=== PATIENT | female | born 1990 | race African-American/Black ===

== ENCOUNTER 2017-10-07 15:38 | Outpatient (CLI) | payer OTHER ==
--- NOTE | 2017-10-07 17:21 | ULT ---
EXAM: TRANSABDOMINAL PELVIC ULTRASOUND 10/07/17 HISTORY: Evaluate for viability. Patient's doctor's office could not obtain heartbeat. Exam is requested for confirmation. COMPARISON: None. TECHNIQUE: Transabdominal imaging of the pelvis is performed. FINDINGS: The uterus is identified measuring 9.8 x 5.8 x 7.1 cm. There is a gestational sac within the endometrium. A definite yolk sac and a normal appearing p ole are not seen. A questionable pole measures 0.8 cm with a gestational age of 6 weeks, 5 days . Gestational age by gestational sac diameter is 9 weeks, 2 days. heart tones in this presumed or suspected pole are not appreciated. Left ovary has a normal echotexture, measuring 3.1 x 2.0 x 1.9 cm. Right ovary has a normal echotextu re measuring 2.2 x 1.5 x 3.3 cm. A small complex follicle measuring 0.9 cm is noted. No free fluid. IMPRESSION: Questionable pole within the gestational sac. There is a discrepancy between the gestational ag e by crown-rump length and mean sac diameter. Definite heart tones are not appreciated. Clinica l correlation with laboratory values is recommended. Serial ultrasounds and beta HCGs can be performe d. POS: [facility]
== END 2017-10-07 15:39 | disposition home or self-care (01) ==
LOC: ULT 15:38
PROVIDERS: ATTEND Nurse Practitioner
DX: Z34.81 Encounter for supervision of other normal pregnancy, first trimester (principal); Z3A.09 9 weeks gestation of pregnancy
CPT/HCPCS: 76856

== ENCOUNTER 2018-01-13 14:22 | Emergency (ER) | payer OTHER ==
[2018-01-13] MEDS ORDERED: HYDROcodone/Acetaminophen 5/325 mg Tablet ONE (14:42)
== END 2018-01-13 15:00 | disposition home or self-care (01) ==
LOC: ERS 14:22
DX: O03.9 Complete or unspecified spontaneous abortion without complication (principal); J45.909 Unspecified asthma, uncomplicated; F17.210 Nicotine dependence, cigarettes, uncomplicated
CPT/HCPCS: 99283

== ENCOUNTER 2018-11-10 09:16 | Outpatient (CLI) | payer OTHER ==
--- NOTE | 2018-11-10 10:26 | ULT ---
US OB Complete STANDARD History: [Anatomy scan] Comparison: Ultrasound pelvis October 07, 2017 Findings: Real-time grayscale, color, and spectral analysis of the gravid uterus was performed. There is a single viable intrauterine with average ultrasound age 25 week 3 day with estima ching date of delivery August 23, 2018. Estimated weight is 1 lb. 11 oz., 66 percentile. Biometry: Biparietal diameter 6.52 cm, 26 week 3 day Head circumference: 22.77 cm, 24 weeks 6 day Abdominal circumference: 19.86 cm, 24 week 4 day Femur length: 4.64 cm, 25 week 3 days Heart rate documented at 1 43 bpm. Adequate amniotic fluid. No placenta previa. The placenta is anter ior and the presentation is vertex. Cervix measures 4.1 cm in length and is closed. Anatomy: There is abnormal dilatation of the bilateral renal pelvis by. These were not measured by e technologist. Both renal pelvis by appear to measure approximately 5 mm. The head, cerebellum, cisterna magna, late ral ventricles, four-chamber heart, stomach, cord insertion, bladder, spine, upper extremities, lower extremities, three-vessel cord are all normal. The lips/nose are not seen. Impression: 1. Single viable intrauterine with average ultrasound age 25 week 3 day with estimated date of delivery February 20, 2019. 2. Abnormal dilatation of bilateral renal pelvis by a 5 mm. Close attention on follow-up imaging is r ecommended.
== END 2018-11-10 09:17 | disposition home or self-care (01) ==
LOC: BICULT 09:16
PROVIDERS: ATTEND Family Medicine
DX: O09.892 Supervision of other high risk pregnancies, second trimester (principal); Z3A.25 25 weeks gestation of pregnancy
CPT/HCPCS: 76805

== ENCOUNTER 2019-02-21 10:09 | Inpatient (IN) | payer OTHER ==
[2019-02-21 10:50] VITALS: BMI 37.5
[2019-02-21] MEDS ORDERED: Bicitra 30 ML UDCUP ONE (11:17)
[2019-02-21] MEDS ORDERED: Butorphanol Tartrate 1 MG/ML VIAL SLOW IVP PRN (11:18)
[2019-02-21] MEDS ORDERED: hydrALAZINE 20 MG/ML VIAL SLOW IVP PRN ×3 (11:18→17:29)
[2019-02-21] MEDS ORDERED: Bicitra 30 ML UDCUP PO SCH (11:18)
[2019-02-21] MEDS ORDERED: Promethazine HCl 25 MG/ML VIAL IM PRN ×2 (11:18→11:57)
[2019-02-21] MEDS ORDERED: Ondansetron PF 4 MG/2 ML Vial IVP PRN ×3 (11:18→17:29)
[2019-02-21] MEDS ORDERED: Lactated Ringer's 1,000 ML IV SCH (11:18)
[2019-02-21] MEDS ORDERED: CEFAZOLIN 2 GM in Sodium Chloride 0.9% 100 ML IVPB SCH (11:30)
[2019-02-21 11:33] LABS: Hemoglobin 11.4 g/dL (12.0-16.0); Mean Corpuscular Hemoglobin 29.6 pg (27.0-31.0); Mean Corpuscular Volume 87.1 fL (78.0-98.0); Mean Platelet Volume 7.9 fL (7.4-10.4); Platelet Count 246 thou/uL (130-400); RBC Distribution Width 11.9 % (11.5-14.5); Red Blood Cell (RBC) Count 3.86 mill/uL (4.20-5.40); White Blood Cell (WBC) Count 7.9 thou/uL (4.8-10.8)
[2019-02-21] MEDS ORDERED: diphenhydrAMINE 50 MG/ML VIAL ONE (11:36)
[2019-02-21] MEDS ORDERED: Naloxone HCl 0.4 mg/ml Vial IVP PRN ×2 (11:57→12:00)
[2019-02-21] MEDS ORDERED: Meperidine HCl/PF 25 MG/ML VIAL SLOW IVP PRN (11:57)
[2019-02-21] MEDS ORDERED: diphenhydrAMINE 50 MG/ML VIAL IVP PRN (11:57)
[2019-02-21] MEDS ORDERED: HYDROmorphone 2 MG/ML VIAL SLOW IVP PRN (11:57)
[2019-02-21] MEDS ORDERED: L&D-Morphine 4 MG/ML VIAL SLOW IVP PRN (11:57)
[2019-02-21] MEDS ORDERED: Ketorolac Tromethamine 30 MG/ML VIAL IVP PRN (11:57)
[2019-02-21] MEDS ORDERED: Promethazine HCl 25 MG SUPP PR PRN (11:57)
[2019-02-21] MEDS ORDERED: Naloxone HCl 0.4 mg/ml Vial IV PRN (11:57)
[2019-02-21] MEDS ORDERED: Ondansetron HCl/PF 4 MG/2 ML Vial IVP PRN (11:57)
[2019-02-21] MEDS ORDERED: Ketorolac Tromethamine 30 MG/ML VIAL IVP SCH (12:00)
[2019-02-21] MEDS ORDERED: MORPHINE 5 MG/10 ML PF VIAL ONE (12:00)
[2019-02-21] MEDS ORDERED: Communication Order-Pharmacy FS SCH (12:00)
[2019-02-21] MEDS ORDERED: Ondansetron PF 4 MG/2 ML Vial ONE (12:00)
[2019-02-21] MEDS ORDERED: Oxytocin 10 UNITS/ML VIAL ONE (12:00)
[2019-02-21] MEDS ORDERED: diphenhydrAMINE 50 MG/ML VIAL IVP SCH (12:00)
[2019-02-21 12:21] LABS: HBSAg Index 0.26 S/CO (0-0.99); Hep B Surf Ag Non-Reactive S/CO (NonReactive); Syphilis Antibody Nonreactive (Nonreactive); Syphilis Antibody Index 0.03 S/CO (<1.00 Non-Reactive)
[2019-02-21] MEDS ORDERED: Meperidine HCl/PF 25 MG/ML VIAL ONE (15:07)
[2019-02-21] MEDS ORDERED: hydrALAZINE 20 MG/ML VIAL ONE (15:52)
[2019-02-21] MEDS ORDERED: hydrALAZINE 20 MG/ML VIAL SLOW IVP SCH (16:15)
[2019-02-21] MEDS ORDERED: Bisacodyl 10 MG SUPP PR PRN (17:29)
[2019-02-21] MEDS ORDERED: Lanolin Ointment 7 GM TUBE TOP PRN (17:29)
[2019-02-21] MEDS ORDERED: Zolpidem Tartrate 5 MG TAB PO PRN (17:29)
[2019-02-21] MEDS ORDERED: NS / Oxytocin 40 units/1000ml 1,000 ML IV SCH (18:00)
[2019-02-21] MEDS ORDERED: Ibuprofen 800 MG TAB PO SCH (18:00)
[2019-02-21] MEDS ORDERED: Ferrous Sulfate 325 MG TAB PO SCH (18:00)
[2019-02-21] MEDS: Ketorolac Tromethamine 30 MG/ML VIAL IVP SCH (19:56)
[2019-02-21] MEDS: Docusate Calcium (SURFAK) 240 MG CAP PO SCH (22:22)
[2019-02-22] MEDS ORDERED: Butorphanol Tartrate 1 MG/ML VIAL SLOW IVP PRN
[2019-02-22] MEDS ORDERED: Meperidine HCl/PF 25 MG/ML VIAL IM PRN (00:01)
[2019-02-22] MEDS: Ketorolac Tromethamine 30 MG/ML VIAL IVP SCH ×2 (02:04→08:24)
[2019-02-22 05:40] LABS: Hemoglobin 11.4 g/dL (12.0-16.0); Mean Corpuscular HGB CONC 33.6 g/dL (32.0-36.0); Mean Corpuscular Hemoglobin 29.5 pg (27.0-31.0); Mean Corpuscular Volume 87.8 fL (78.0-98.0); Mean Platelet Volume 7.7 fL (7.4-10.4); Platelet Count 253 thou/uL (130-400); Red Blood Cell (RBC) Count 3.87 mill/uL (4.20-5.40); White Blood Cell (WBC) Count 11.6 thou/uL (4.8-10.8)
[2019-02-22] MEDS ORDERED: Ibuprofen 800 MG TAB PO SCH (06:00)
--- NOTE | 2019-02-22 07:52 | DN ---
DATE OF PROCEDURE: 02/21/2019 RESIDENT: Devin Irving, PGY-3. PROCEDURE PERFORMED: Primary low-transverse section. PREOPERATIVE DIAGNOSES: 1. Term intrauterine . 2. Breech presentation. POSTOPERATIVE DIAGNOSIS: 1. Term intrauterine . 2. Breech presentation. ANESTHESIA: Spinal. INDICATIONS: The patient is a 28-year-old, G2, P1-0-0-1 at 39 and 2 weeks gestation, who presents for a scheduled due to breech presentation. PROCEDURE IN DETAIL: After risks, benefits, and alternatives were explained to the patient, she gave informed consent. Preoperative antibiotics include cefazolin 2 g IV. The patient was taken to the operating room and spinal anesthesia was initiated. She was placed in the supine position with left tilt and prepped and draped in the usual sterile fashion. A Pfannenstiel incision was made with a scalpel and carried down to the level of fascia, which was sharply nicked. Fascial cut was extended bilaterally with [place] scissors. The inferior and superior edges of the cut fascial edges were elevated with Denise clamps and underlying rectus muscles were sharply and bluntly dissected free. The recti were divided digitally and retracted manually. The peritoneum was entered bluntly and retracted manually. An Jakob O retractor was placed. A low transverse score was made with the scalpel, and the uterus was entered in the midline with scalpel, clear fluid was seen. The hysterotomy was extended manually. The infant was noted to be footling breech presentation and was easily delivered. Mouth and nares were bulb suctioned. Cord clamped and cut and grossly normal male infant, was handed to waiting nurse. Cord blood was obtained. Placenta was manually extracted, found to be intact with three vessel cord and discarded. Uterus was externalized, and the endometrium was curetted with a dry lap. The uterus was then closed with a running locking 0-Vicryl suture then we placed few [id number] 0-Vicryl sutures as well. Following this, hemostasis was noted. Jakob O retractor was then removed. The abdomen was irrigated with saline and suctioned free of clots. The uterus was internalized, and the hysterotomy was again noted to be hemostatic. The peritoneum was closed with a 3-0 Vicryl running nonlocking suture. The fascia was then closed with a running nonlocking one PDS suture. The subcu tissue was irrigated, and there were no bleeders. The skin was approximated with marciano and a pressure dressing was placed. All counts were correct. The patient tolerated the procedure well and was taken to the recovery room in stable condition. EBL was 400 mL. COMPLICATIONS: None. SPECIMENS: Cord blood sent to lab for blood type. FINDINGS: Grossly normal male with Apgars of eight and eight. Grossly normal placenta with 3-vessel cord discarded. DRAINS: Cardoso to gravity, draining clear urine. Job ID: [id number]
[2019-02-22] MEDS ORDERED: Sodium Chloride 0.9% 20 ML ONE (08:18)
[2019-02-22] MEDS ORDERED: Adacel (T-DAP) 0.5 ML SYRINGE IM ONE (09:00)
[2019-02-22] MEDS: Ferrous Sulfate 325 MG TAB PO SCH ×3 (09:05→18:11)
[2019-02-22] MEDS: Docusate Calcium (SURFAK) 240 MG CAP PO SCH ×2 (09:08→21:03)
[2019-02-22] MEDS: Prenatal Vitamin 1 TAB PO SCH (09:08)
[2019-02-22] MEDS: HYDROcodone/Acetaminophen 5/325 mg Tablet PO PRN ×2 (14:51→21:04)
[2019-02-22] MEDS: Simethicone Chewable 80 MG TAB PO PRN ×2 (14:52→21:03)
[2019-02-22] MEDS: Ibuprofen 800 MG TAB PO SCH ×2 (16:57→23:14)
[2019-02-22] MEDS: diphenhydrAMINE 25 MG CAP PO PRN (23:25)
[2019-02-23] MEDS: Ibuprofen 800 MG TAB PO SCH ×3 (02:01→20:35)
[2019-02-23] MEDS: Docusate Calcium (SURFAK) 240 MG CAP PO SCH ×2 (08:51→20:35)
[2019-02-23] MEDS: Prenatal Vitamin 1 TAB PO SCH (08:51)
[2019-02-23] MEDS: Ferrous Sulfate 325 MG TAB PO SCH ×2 (09:16→16:51)
[2019-02-23] MEDS: Simethicone Chewable 80 MG TAB PO PRN ×3 (10:48→20:35)
[2019-02-23] MEDS: HYDROcodone/Acetaminophen 5/325 mg Tablet PO PRN ×3 (10:57→20:36)
[2019-02-23] MEDS: cloNIDine 0.1 MG TAB PO PRN (17:17)
[2019-02-23] MEDS: diphenhydrAMINE 25 MG CAP PO PRN (22:04)
[2019-02-24] MEDS: cloNIDine 0.1 MG TAB PO PRN ×2 (00:46→17:25)
[2019-02-24] MEDS: HYDROcodone/Acetaminophen 5/325 mg Tablet PO PRN ×3 (00:47→13:21)
[2019-02-24] MEDS: Simethicone Chewable 80 MG TAB PO PRN ×2 (03:44→13:21)
[2019-02-24] MEDS: Ibuprofen 800 MG TAB PO SCH ×2 (06:05→13:21)
[2019-02-24] MEDS: Docusate Calcium (SURFAK) 240 MG CAP PO SCH (08:21)
[2019-02-24] MEDS: Prenatal Vitamin 1 TAB PO SCH (08:21)
[2019-02-24] MEDS: Ferrous Sulfate 325 MG TAB PO SCH ×2 (08:24→16:12)
[2019-02-24] MEDS ORDERED: Losartan/Hydrochlorothiazide 100 mg/25 mg Tablet PO SCH (09:00)
[2019-02-24 11:52] VITALS: TEMP 97.8
[2019-02-24 17:26] VITALS: BP 155/88
== END 2019-02-24 18:30 | disposition home or self-care (01) | DRG 788 ==
LOC: L&D 10:09 → 3SW 18:10
PROVIDERS: ADMIT Family Medicine; ATTEND Family Medicine
PROC: 10D00Z1 Extraction of Products of Conception, Low, Open Approach (ICD-10-PCS; principal; 2019-02-21)
DX: O32.1XX0 Maternal care for breech presentation, not applicable or unspecified (principal); Z3A.39 39 weeks gestation of pregnancy; Z37.0 Single live birth
CPT/HCPCS: 36415; 51702; 85027; 86780; 86850; 86900; 86901; 87340; 90471; 90732; G0009; J0360; J0690; J1200; J1885; J2175; J2274; J2310; J2405; J2590; J3490; Q0163

== ENCOUNTER 2020-05-16 04:10 | Inpatient (IN) | payer OTHER ==
[2020-05-16] MEDS ORDERED: Ondansetron PF 4 MG/2 ML Vial IVP PRN ×3 (04:40→08:02)
[2020-05-16] MEDS ORDERED: Promethazine HCl 25 MG/ML VIAL IM PRN ×3 (04:40→08:02)
[2020-05-16] MEDS ORDERED: hydrALAZINE 20 MG/ML VIAL SLOW IVP PRN ×3 (04:40→07:56)
[2020-05-16] MEDS ORDERED: Lactated Ringer's 1,000 ML IV SCH (04:45)
[2020-05-16] MEDS ORDERED: Labetalol HCl 100 MG/20 ML VIAL SLOW IVP SCH (05:00)
[2020-05-16 05:14] VITALS: BMI 34.2
[2020-05-16 06:06] LABS: Hemoglobin 11.3 g/dL (12.0-16.0); Mean Corpuscular HGB CONC 33.5 g/dL (32.0-36.0); Mean Corpuscular Hemoglobin 28.6 pg (27.0-31.0); Mean Corpuscular Volume 85.4 fL (78.0-98.0); Mean Platelet Volume 8.1 fL (7.4-10.4); Platelet Count 272 thou/uL (130-400); RBC Distribution Width 12.9 % (11.5-14.5); Red Blood Cell (RBC) Count 3.95 mill/uL (4.20-5.40)
[2020-05-16] MEDS ORDERED: PHENYLEPHRINE-NS 100 MCG/ML 10 ML SYRINGE ONE (06:23)
[2020-05-16] MEDS ORDERED: Oxytocin 10 UNITS/ML VIAL ONE ×2 (06:23→07:12)
[2020-05-16] MEDS ORDERED: Morphine PF 10 MG/10 ML VIAL ONE (06:23)
[2020-05-16 06:28] LABS: ALT (SGPT) 9 U/L (8-55); AST (SGOT) 16 U/L (5-34); Albumin 3.2 g/dL (3.5-5.0); Alkaline Phosphatase 132 U/L (40-110); Anion Gap 12 mmol/L (10-20); BUN (Urea Nitrogen) Less than 4 mg/dL (7.0-18.7); Bilirubin, Total 0.4 mg/dL (0.2-1.2); Calc. Creatinine Clearance 158 mL/min (70-130); Calcium 8.9 mg/dL (7.8-10.44); Carbon Dioxide 23 mmol/L (22-29); Chloride 101 mmol/L (98-107); Estimated GFR-MDRD Greater than 90; Globulin 3.1 g/dL (2.4-3.5); Glucose 78 mg/dL (70-105); Potassium 3.2 mmol/L (3.5-5.1); Protein, Total 6.3 g/dL (6.0-8.3); Sodium 133 mmol/L (136-145)
[2020-05-16] MEDS ORDERED: Clindamycin/D5W 900 MG in Premix Bag 1 BAG IVPB SCH (06:30)
[2020-05-16] MEDS ORDERED: Bicitra 30 ML UDCUP PO SCH (06:30)
[2020-05-16] MEDS ORDERED: Azithromycin 500 MG in Sodium Chloride 0.9% 250 ML 250 ML IVPB SCH (06:30)
[2020-05-16 06:45] LABS: Syphilis Antibody Nonreactive (Nonreactive); Syphilis Antibody Index 0.03 S/CO (<1.00 Non-Reactive)
[2020-05-16 06:46] LABS: HBSAg Index 0.16 S/CO (0-0.99); Hep B Surf Ag Non-Reactive S/CO (NonReactive)
--- NOTE | 2020-05-16 07:00 | HP ---
CHIEF COMPLAINT: Ruptured membranes. HISTORY OF PRESENT ILLNESS: Ms. Horn is a 29-year-old, G3, P2-0-0-2 with a reported estimated date of confinement of 05/26/2020, who presents complaining of ruptured membranes at 3 a.m. She states the fluid was clear. She has had intermittent contractions since that time. She states she has only had 4 visits since her began. She has seen several people in town including Dr. Thomas at [facility], and she has even been to [facility]. I have no records available for my review at the present time. PAST OBSTETRICAL HISTORY: Includes 1 vaginal delivery and 1 section for breech by Dr. Thomas. PAST MEDICAL HISTORY: None. PAST SURGICAL HISTORY: . CURRENT MEDICATIONS: vitamins. ALLERGIES: NO KNOWN ALLERGIES. SOCIAL HISTORY: Denies tobacco, alcohol, or drug use. FAMILY HISTORY: Unremarkable. REVIEW OF SYSTEMS: Denies nausea, vomiting, fever, chills, vaginal bleeding. PHYSICAL EXAMINATION: VITAL SIGNS: Initial blood pressure is 170 systolic, followup blood pressures after that are in the 150s systolic. GENERAL: She is anxious, but in no acute distress. CHEST: Clear to auscultation. CARDIOVASCULAR: Regular rate and rhythm. ABDOMEN: Soft and nontender. PELVIC: Shows the cervix to be 1 cm dilated. She is obviously grossly ruptured. heart rate tracing is in the 120s with decreased [id number] variability, however, no decelerations are seen. Only an occasional contraction is noted. Ultrasound shows a single fetus in the cephalic presentation. Estimated weight is approximately 3100 g and her EFRAÍN is noted to be 7. ASSESSMENT: 1. Suspected term intrauterine . 2. Poor care. 3. Previous section. 4. Obvious ruptured membranes. PLAN: Labs and COVID testing have been obtained. After these return, we will proceed to the OR for repeat section. The risks of the procedure including anesthesia, bleeding, infection, as well as damage to adjacent organs requiring repair, removal or transfusion was discussed with her in detail and she wishes to proceed. Job ID: [id number]
[2020-05-16] MEDS ORDERED: Ondansetron PF 4 MG/2 ML Vial ONE (07:01)
[2020-05-16] MEDS ORDERED: Dexamethasone 4 mg/ml Vial ONE (07:02)
[2020-05-16] MEDS ORDERED: ePHEDrine 50 MG/ML VIAL ONE (07:24)
[2020-05-16] MEDS ORDERED: Adacel (T-DAP) 0.5 ML SYRINGE IM ONE (07:56)
[2020-05-16] MEDS ORDERED: Measles/Mumps/Rubella 10 MCG/0.5 ML VIAL SC ONE (07:56)
[2020-05-16] MEDS ORDERED: diphenhydrAMINE 25 MG CAP PO PRN (07:56)
[2020-05-16] MEDS ORDERED: Lanolin Ointment 7 GM TUBE TOP PRN (07:56)
[2020-05-16] MEDS ORDERED: diphenhydrAMINE 50 MG/ML VIAL IVP PRN (08:02)
[2020-05-16] MEDS ORDERED: Promethazine HCl 25 MG SUPP PR PRN (08:02)
[2020-05-16] MEDS ORDERED: Naloxone HCl 0.4 mg/ml Vial IVP PRN ×2 (08:02)
[2020-05-16] MEDS ORDERED: Naloxone HCl 0.4 mg/ml Vial IV PRN (08:02)
[2020-05-16] MEDS ORDERED: Communication Order-Pharmacy FS SCH (08:15)
--- NOTE | 2020-05-16 08:38 | ULT ---
OB ULTRASOUND: COMPARISON: None. HISTORY: female. Abdominal pain. Evaluate size and dates. TECHNIQUE: Multiplanar, easton scale, and color Doppler images were obtained in a transabdominal ultrasound. FINDINGS: There is a single live intrauterine with heart rate of 111 b.p.m. Estimated weight i s 3,130 gm. The average age of the fetus based off today's examination is 36 weeks 5 days. The foll owing measurements were taken and dates based off these measurements as follows: BPD 8.96 cm, 36 weeks 2 days HC 32.45 cm, 36 weeks 5 days AC 34.05 cm, 38 weeks 0 days FL 7.01 cm, 36 weeks 0 days The fetus is in vertex presentation. EFRAÍN is 7.8 cm, which is normal. The placenta is anterior in lo cation without evidence of placenta previa. Cervix was not visualized. IMPRESSION: Single live intrauterine with estimated age of 36 weeks 5 days. POS: [facility]
[2020-05-16] MEDS ORDERED: Ketorolac Tromethamine 30 MG/ML VIAL ONE (08:45)
[2020-05-16] MEDS: Ketorolac Tromethamine 30 MG/ML VIAL IVP PRN ×2 (08:45→21:41)
--- NOTE | 2020-05-16 08:50 | OP ---
DATE OF PROCEDURE: 05/16/2020 PREOPERATIVE DIAGNOSES: 1. Suspected term intrauterine with poor care. 2. Ruptured membranes. 3. Previous section. POSTOPERATIVE DIAGNOSES: 1. Suspected term intrauterine with poor care. 2. Ruptured membranes. 3. Previous section. PROCEDURE PERFORMED: Repeat low-segment transverse section via Pfannenstiel incision. PRODUCTION SCHEDULER SURGEON: Luciano Villegas MD ANESTHESIA: Spinal. ESTIMATED BLOOD LOSS: 600 mL, QBL pending. FINDINGS: 1. Male , Apgars 8 and 9. Weight is 6#5oz, 2860gms, found in the cephalic presentation. 2. Normal uterus, tubes, and ovaries bilaterally. PROPHYLAXIS: Clindamycin 900 mg and azithromycin 500 mg prior to skin incision. COMPLICATIONS: None. TECHNIQUE IN DETAIL: After good spinal anesthesia was achieved, the patient was prepped and draped in usual sterile fashion in the supine position with leftward tilt. A transverse incision was made through a pre-existing surgical scar, and the abdomen was entered in layers. The uterus was identified, and a bladder flap was created in the peritoneum. A transverse incision was made across the lower uterine segment and was extended bluntly. The fetus was delivered from the cephalic presentation without difficulty. Clear fluid was seen. The cord was clamped and cut, and the baby was handed to the awaiting pediatric team. Cord blood was obtained. The placenta was manually removed. The inside of the uterus was curetted with a dry lap to remove all remaining placental fragments. Closure of the uterine incision was accomplished using Monocryl in a running locking fashion. Good hemostasis was noted with single-layer closure. The uterus was replaced in the abdominal cavity, and the pelvic gutters were cleared of all clots and debris. The perineum was reapproximated using a running locking plain gut suture. The fascia was then closed using a PDS suture brought from the patient's left side to her right side. The subcutaneous tissue was thoroughly irrigated and made dry using Bovie coagulation technique. The subcutaneous tissue was reapproximated using 2-0 plain suture in a running fashion. The skin was closed using a 3-0 Monocryl in a subcuticular stitch. Skin glue was then applied. Good hemostasis was noted through all layers of closure. Sponge, lap, and needle counts were correct. The patient tolerated the procedure well and was taken to the recovery room in good condition. Job ID: [id number] [facility]
[2020-05-16] MEDS ORDERED: FLU VACC QS2020-21(6MOS UP)/PF 60 MCG/0.5 ML SYRINGE IM ONE (09:00)
[2020-05-16] MEDS ORDERED: Calcium Gluconate 4.6 MEQ in Sodium Chloride 0.9% 100 ML IVPB SCH (09:27)
[2020-05-16] MEDS ORDERED: Labetalol HCl 100 MG/20 ML VIAL ONE (09:27)
[2020-05-16] MEDS ORDERED: Magnesium Sulfate 20 GM/WATER 500 ML BAG IVPB SCH (09:30)
[2020-05-16 09:41] LABS: Amphetamine Not Detected (NotDetected); Barbiturates Screen Not Detected (NotDetected); Benzodiazepine Screen Not Detected (NotDetected); Cocaine Metabolite Screen Detected (NotDetected); Medtox Control Line Valid? VALID (VALID); Medtox Reader # READER 4; Methadone Not Detected (NotDetected); Methamphetamine Not Detected (NotDetected); Opiate Screen Not Detected (NotDetected); Oxycodone Screen Not Detected (NotDetected); Phencyclidine (PCP) Not Detected (NotDetected); THC/Cannabinoid Screen Not Detected (NotDetected); Tricyclic Screen Not Detected (NotDetected)
[2020-05-16] MEDS: Magnesium Sulfate 20 gm/500 ml 20 GM/500 ML BAG IVPB SCH ×2 (10:06→18:07)
[2020-05-16] MEDS: HYDROcodone/Acetaminophen 5/325 mg Tablet PO PRN ×2 (12:01→18:06)
[2020-05-16] MEDS ORDERED: NS / Oxytocin 40 units/1000ml 1,000 ML ONE (14:20)
[2020-05-16 16:10] LABS: SARS-CoV-2 MS2 Positive; SARS-CoV-2 N Gene Negative; SARS-CoV-2 S Gene Negative; SARS-CoV-2 by NAA Not Detected (NotDetected); SARS-CoV-2 orf1ab Negative
[2020-05-16] MEDS: Labetalol HCl 100 MG/20 ML VIAL SLOW IVP SCH ×2 (21:37→22:13)
--- NOTE | 2020-05-16 21:44 | PDOC.EVN ---
Event Note - Event Note Event Note: Pt in the immediate post op period began having severe range blood pressures. Pt was reported to have severe range pressures before delivery. PT was placed on magnesium for sz prophylaxis and iv labetolol 20 mg. PT later was shown to be positive for cocaine. BP s have been primarily mild range. Severe range bp have presented this evening requiring iv labetolol. uo about 200cc/hr. Will continue watching, treat iv as needed.
[2020-05-17] MEDS: Magnesium Sulfate 20 gm/500 ml 20 GM/500 ML BAG IVPB SCH (03:50)
[2020-05-17] MEDS: Ketorolac Tromethamine 30 MG/ML VIAL IVP PRN ×2 (03:51→09:27)
[2020-05-17 07:08] LABS: Hemoglobin 12.1 g/dL (12.0-16.0); Mean Corpuscular HGB CONC 33.3 g/dL (32.0-36.0); Mean Corpuscular Hemoglobin 28.3 pg (27.0-31.0); Mean Platelet Volume 8.3 fL (7.4-10.4); Platelet Count 325 thou/uL (130-400); RBC Distribution Width 12.9 % (11.5-14.5); Red Blood Cell (RBC) Count 4.27 mill/uL (4.20-5.40); White Blood Cell (WBC) Count 14.9 thou/uL (4.8-10.8)
--- NOTE | 2020-05-17 08:14 | PRG ---
DATE OF SERVICE: 05/17/2020 SUBJECTIVE: The patient is postop day 1, status post repeat lower transverse section. Upon arrival, the patient had severe range of blood pressures that returned after delivery and was placed on magnesium for seizure prophylaxis. The patient has required two doses of IV labetalol in the last 24 hours. Of note, her drug screen came back positive for cocaine, which she denies taking. The patient has been on magnesium now for nearly 24 hours. Most of her blood pressures have remained in the normal to mild range; this morning, they are bordering on the severe range being in the upper 150s, most recent being 158/99. She reports that she feels well. She denies headache. Her bleeding is slowing down. She has good pain control. No shortness of breath. OBJECTIVE: VITAL SIGNS: Again, most recent blood pressure 158/99, heart rate of 86, respiratory rate of 20. GENERAL: She appears to be in no acute distress. She is alert, oriented, cooperative, and pleasant to interact with. Incision is bandaged. Outer bandage was removed. ABDOMEN: Soft. Fundus is firm. EXTREMITIES: Have SCDs present and Cardoso is in place. LABORATORY DATA: hemoglobin is 12.1, hematocrit 36.3, and platelets of 325,000. ASSESSMENT AND PLAN: The patient is a 29-year-old postop day 1, status post a repeat lower transverse section, on magnesium for seizure prophylaxis with a diagnosis of severe -induced hypertension. Of note, in our conversation, the patient reports that she has had preeclampsia with all of her previous pregnancies. The patient has required two doses of IV labetalol, may require oral medications. Magnesium will be discontinued this morning and we will continue to monitor blood pressures. Case Management has been consulted given the positive cocaine status. Job ID: [id number]
[2020-05-17] MEDS: Prenatal Vitamin 1 TAB PO SCH ×2 (09:27→15:28)
[2020-05-17] MEDS: Simethicone Chewable 80 MG TAB PO PRN ×2 (11:20→23:29)
[2020-05-17] MEDS ORDERED: NIFEdipine XL 30 MG TAB PO SCH (11:45)
--- NOTE | 2020-05-17 14:23 | PDOC.BPN ---
- Brief Progress Note Encounter Date: 05/17/20 Encounter Time: 11:10 Patient with continued 150s/110s, now off Mag. Will start Nifedipine XL 30mg daily. Continue to monitor. Will transfer to PP once BPs are improved.
[2020-05-17] MEDS: HYDROcodone/Acetaminophen 5/325 mg Tablet PO PRN (16:11)
[2020-05-17] MEDS: Ibuprofen 800 MG TAB PO SCH ×3 (16:34→23:29)
[2020-05-18] MEDS: Ibuprofen 800 MG TAB PO SCH ×3 (05:34→22:46)
--- NOTE | 2020-05-18 07:29 | PDOC.PP ---
Post Progress Note Post Day #: 2 Subjective: Having some mild pain overnight but overall doing well. No other complaints this morning. PO intake tolerated: yes Flatus: yes Ambulation: yes Vital Signs (12 hours) Temp Pulse Resp BP Pulse Ox 05/18/20 05:30 98.4 F 87 18 138/83 05/17/20 23:25 98.7 F 87 18 145/88 H 05/17/20 20:10 98.7 F 87 12 122/75 98 05/17/20 19:45 98.7 F 78 12 122/75 99 Weight Weight 175 lb - Physical Examination General: NAD Respiratory: non-labored breathing Abdominal: lochia (normal), no distention, appropriately TTP Fundus firm & at: below umbilicus Skin: CS incision dry & intact, no rash Neurological: no gross focal deficits Psychiatric: A&Ox3, normal affect Result Diagrams: 05/17/20 06:46 05/16/20 05:55 Additional Labs: Post Labs Hep Bs Antigen Non-Reactive S/CO (NonReactive) 05/16/20 05:55 Blood Type AB POSITIVE 05/16/20 05:55 (1) delivery delivered Code(s): O82 - ENCOUNTER FOR DELIVERY WITHOUT INDICATION Status: Acute (2) Cocaine abuse affecting Code(s): O99.320 - DRUG USE COMPLICATING , UNSPECIFIED TRIMESTER; F14.10 - COCAINE ABUSE, UNCOMPLICATED Status: Acute (3) Hypertension affecting Code(s): O16.9 - UNSPECIFIED MATERNAL HYPERTENSION, UNSPECIFIED TRIMESTER Status: Acute - Assessment/Plan Started on Procardia XL 30mg yesterday for persistently elevated BPs. BPs improved to mostly mild range. Continue to monitor. Anticipate d/c tomorrow.
[2020-05-18] MEDS: HYDROcodone/Acetaminophen 5/325 mg Tablet PO PRN ×2 (07:33→20:58)
[2020-05-18] MEDS: NIFEdipine XL 30 MG TAB PO SCH (07:36)
[2020-05-18] MEDS: Prenatal Vitamin 1 TAB PO SCH (07:37)
[2020-05-19] MEDS: Ibuprofen 800 MG TAB PO SCH ×2 (04:56→14:36)
--- NOTE | 2020-05-19 06:05 | PDOC.PP ---
Post Progress Note Post Day #: POD3 Subjective: Resting, no c/o. Tolerating diet. PO intake tolerated: yes Flatus: yes Ambulation: yes Vital Signs (12 hours) Temp Pulse Resp BP Pulse Ox 05/19/20 00:30 132/70 05/18/20 19:45 98.6 F 66 16 135/89 100 Weight Weight 79.379 kg - Physical Examination General: NAD Abdominal: no distention Skin: CS incision dry & intact Neurological: no gross focal deficits Psychiatric: normal affect Result Diagrams: 05/17/20 06:46 05/16/20 05:55 Additional Labs: Post Labs Hep Bs Antigen Non-Reactive S/CO (NonReactive) 05/16/20 05:55 Blood Type AB POSITIVE 05/16/20 05:55 - Assessment/Plan BPs well controlled on Procadia XL 30 QD. DC home w/ precautions. RTC 2 weeks with [facility] for BP check.
[2020-05-19 08:58] VITALS: BP 131/80; TEMP 98.5
[2020-05-19] MEDS: NIFEdipine XL 30 MG TAB PO SCH (09:13)
[2020-05-19] MEDS: Prenatal Vitamin 1 TAB PO SCH (09:13)
== END 2020-05-19 15:15 | disposition home or self-care (01) | DRG 787 ==
LOC: L&D/OP 04:10 → L&D 04:40 → 3SW 05-17 15:13
PROVIDERS: ADMIT Obstetrics & Gynecology; ATTEND Obstetrics & Gynecology
PROC: 10D00Z1 Extraction of Products of Conception, Low, Open Approach (ICD-10-PCS; principal; 2020-05-16)
DX: O34.219 Maternal care for unspecified type scar from previous cesarean delivery (principal); O99.324 Drug use complicating childbirth; Z37.0 Single live birth; Z88.0 Allergy status to penicillin; F14.10 Cocaine abuse, uncomplicated; Z20.828 Contact with and (suspected) exposure to other viral communicable diseases; O69.81X0 Labor and delivery complicated by cord around neck, without compression, not applicable or unspecified; O13.5 Gestational [pregnancy-induced] hypertension without significant proteinuria, complicating the puerperium
CPT/HCPCS: 36415; 51702; 76815; 80053; 80306; 83735; 85027; 86780; 86850; 86900; 86901; 87340; 87635; 99285; J0456; J1100; J1885; J2270; J2405; J3475; J3490; J7050; U0003

== ENCOUNTER 2022-05-26 17:05 | Emergency (ER) | payer MEDICAID, OTHER | END 2022-05-26 19:08 | disposition left against medical advice (07) | LOC: ERS 17:05 | DX: Z53.21 Procedure and treatment not carried out due to patient leaving prior to being seen by health care provider (principal) ==

== ENCOUNTER 2022-09-09 21:44 | Emergency (ER) | payer MEDICAID, OTHER ==
[2022-09-09] MEDS ORDERED: Lidocaine 1% PF 5 ML VIAL ONE (22:23)
== END 2022-09-09 23:16 | disposition home or self-care (01) ==
LOC: ERS 21:44
DX: L08.9 Local infection of the skin and subcutaneous tissue, unspecified (principal); I10 Essential (primary) hypertension
CPT/HCPCS: 10061

== ENCOUNTER → 2025-03-10 | Emergency (ER) | payer OTHER | LOC: ERS 17:50 | DX: Z53.21 Procedure and treatment not carried out due to patient leaving prior to being seen by health care provider (principal) | CPT/HCPCS: 87428 ==

== ENCOUNTER 2025-03-11 13:31 | Emergency (ER) | payer OTHER | END 2025-03-11 14:36 | disposition home or self-care (01) | LOC: ERS 13:31 | DX: J01.90 Acute sinusitis, unspecified (principal); R19.7 Diarrhea, unspecified | CPT/HCPCS: 99282 ==

== ENCOUNTER 2025-06-06 16:47 | Emergency (ER) | payer OTHER ==
[2025-06-06] MEDS ORDERED: Ketorolac Tromethamine 30 MG (1 mL) VIAL ONE (18:07)
[2025-06-06] MEDS ORDERED: Cyclobenzaprine 10 MG TAB ONE (18:07)
== END 2025-06-06 19:08 | disposition home or self-care (01) ==
LOC: ERS 16:47
DX: S39.012A Strain of muscle, fascia and tendon of lower back, initial encounter (principal); X50.0XXA Overexertion from strenuous movement or load, initial encounter
CPT/HCPCS: 96372; 99282; J1885

== ENCOUNTER 2025-06-22 15:12 | Emergency (ER) | payer OTHER | END 2025-06-22 17:10 | disposition home or self-care (01) | LOC: ERS 15:12 | DX: B34.9 Viral infection, unspecified (principal); R19.7 Diarrhea, unspecified | CPT/HCPCS: 87081; 87428; 87430; 99283 ==